=== PATIENT | female | born 1965 | race Caucasian/White ===

== ENCOUNTER 2021-05-04 14:49 | Emergency (ER) | payer OTHER, SELFPAY ==
--- NOTE | ~2021-05-04 | XR_ITS ---
EXAMINATION: XR forearm LT 2V INDICATION: Left arm pain and laceration TECHNIQUE: Two views of the left forearm are obtained. COMPARISON: None available FINDINGS: There is a soft tissue laceration overlying the anterolateral forearm. No radiopaque foreig n body is identified. There is no fracture. Bone alignment is normal at the elbow and wrist. IMPRESSION: 1. No acute osseous abnormality. Reviewed, dictated and finalized at location A.
[2021-05-04 16:13] VITALS: BP 144/106; PULSE 97; RESP 14; TEMP 37.3; O2SAT 100
--- NOTE | 2021-05-04 18:29 | ED.WOUNDLAC ---
HPI - Wound/Laceration General Chief Complaint: Wound/Laceration Stated Complaint: L ARM LACERATION Time Seen by Provider: 05/04/21 17:30 Source: patient Mode of arrival: ambulatory Limitations: no limitations History of Present Illness HPI narrative: This is a 55 year old female that presents to the ER for left forearm laceration sustained just prior to arrival. Reports she cut it on a trailer hitch while detailing a car. Reports bleeding and pain to the area. She is not up-to-date on tetanus. Denies decreased range of motion or numbness. Related Data Allergies Allergy/AdvReac Type Severity Reaction Status Date / Time No Known Allergies Allergy Unknown Unverified 06/16/17 10:48 Review of Systems Review of Systems: CONSTITUTIONAL: Denies fever SKIN: Reports laceration NEUROLOGIC: Denies numbness All systems reviewed & are unremarkable except as noted in HPI and below PMFSH Past Medical History Medical History (Updated 05/04/21 @ 19:50 by Justine Acosta PA-C) No active medical problems Social History Social History (Updated 05/04/21 @ 18:31 by Justine Acosta PA-C) Smoking status: Current every day smoker Exam Narrative: GENERAL: Well-appearing, well-nourished, and in no acute distress. HEAD: Normocephalic, atraumatic. EYES: EOMI. EXTREMITIES: Normal range of motion. No edema. 4 cm flap laceration to the left forearm into subcutaneous tissue. Normal radial pulses SKIN: Warm, dry, no rash. NEURO: No focal deficits. Alert and oriented x3. PSYCH: Normal mood and affect Course Vital Signs Vital signs: Vital Signs Temperature 99.2 F 05/04/21 16:13 Pulse Rate 97 05/04/21 16:13 Respiratory Rate 14 05/04/21 16:13 Blood Pressure 144/106 H 05/04/21 16:13 Pulse Oximetry 100 05/04/21 16:13 Temperature 99.2 F 05/04/21 16:13 Pulse Rate 97 05/04/21 16:13 Respiratory Rate 14 05/04/21 16:13 Blood Pressure 144/106 H 05/04/21 16:13 Pulse Oximetry 100 05/04/21 16:13 Procedures Laceration Laceration 1: Date: 05/04/21 Time: 19:49 Site: upper extremity Side (If applicable): left Size (cm): 4 Description: flap Depth: simple, single layer Local Anesthetic: lidocaine 1% and with epi Amount of anesthesia used (mL): 4 Pre-repair: wound explored and irrigated ====== Skin Level ====== Skin layer closed with: nylon Size (cm): 4-0 Number of sutures: 7 Technique: simple, interrupted ====== Subcutaneous Layer ====== ====== Muscle Layer ====== ====== Tendon Layer ====== MDM - Wound/Laceration MDM Narrative Medical decision making narrative: Patient presents to the emergency department for a laceration to the left forearm sustained just prior to arrival. Left forearm x-ray is without acute osseous abnormalities or evidence of foreign body. Patient's wound was irrigated and closed with sutures. Patient was updated on tetanus. She was educated on wound care. She is to follow-up with primary care doctor. She was given warnings to return to the ER Imaging Data Radiologist's impression: ITS Impressions Forearm X-Ray 05/04/21 18:08 IMPRESSION: 1. No acute osseous abnormality. Critical Care Time Critical Care Time Critical Care Time: No Discharge Plan Discharge Clinical Impression: Laceration Patient Disposition: Home, Self-Care Condition: Stable Instructions: Care For Your Stitches (ED), Laceration (ED) Additional Instructions: Return to the emergency department if you experience fever, redness or swelling of your wound, abnormal drainage from your wound, or any other symptoms that are concerning to you. Apply antibiotic ointment daily. Do not soak the wound. Clean with mild soap and water daily Follow-up with primary care doctor for suture removal in 10-14 days. Follow-up/Referrals: PHYSICIAN,PROCESS ENGINEER [Primary Care Provider] - Sameer
[2021-05-04] MEDS: TETANUS,DIPHTHERIA,AC PERTUSSIS ADULT (0.5 ML) BOOSTRIX IM (19:47)
[2021-05-04 19:55] VITALS: BP 128/72; PULSE 72; RESP 18; O2SAT 100
== END 2021-05-04 19:55 | disposition home or self-care (01) ==
PROVIDERS: Emergency Provider Emergency Medicine
DX: S51.812A Laceration without foreign body of left forearm, initial encounter (principal); Z23 Encounter for immunization; F17.200 Nicotine dependence, unspecified, uncomplicated; W26.8XXA Contact with other sharp object(s), not elsewhere classified, initial encounter
CPT/HCPCS: 12002; 73090; 90471; 90715; 99283